=== PATIENT | male | born 1960 | race Caucasian/White ===

== ENCOUNTER 2017-12-02 05:15 | Observation (INO) | payer OTHER ==
[~2017-12-02] VITALS: Ht 180.3 cm; Wt 82.7 kg
[2017-12-02] MEDS ORDERED: TAMS.4ER PO (05:51)
[2017-12-02] MEDS ORDERED: METO25ER PO (05:52)
[2017-12-02] MEDS ORDERED: ALLO100 PO (05:52)
[2017-12-02] MEDS ORDERED: Prilosec Otc20 MG PO (05:53)
[2017-12-02 05:55] LABS: BASOPHILS ABSOLUTE AUTO 0.02 K/mm3 (0.00-0.23); BASOPHILS PERCENT AUTO 0 % (0-2); EOSINOPHILS ABSOLUTE AUTO 0.01 K/mm3 (0.00-0.68); EOSINOPHILS PERCENT AUTO 0 % (0-6); Hemoglobin 13.3 g/dL (13.5-17.5); IMMATURE GRAN ABSOLUTE AUTO 0.04 K/mm3 (0.00-0.10); IMMATURE GRAN PERCENT AUTO 1 % (0-1); LYMPHOCYTES ABSOLUTE AUTO 0.83 K/mm3 (0.84-5.20); LYMPHOCYTES PERCENT AUTO 10 % (21-46); MONOCYTES ABSOLUTE AUTO 1.18 K/mm3 (0.16-1.47); MONOCYTES PERCENT AUTO 15 % (4-13); Mean Corpuscular HGB 33.9 pg (26.0-34.0); Mean Corpuscular HGB Conc 35.9 g/dL (31.5-36.5); Mean Corpuscular Volume 94 fL (80-100); NEUTROPHILS ABSOLUTE AUTO 5.97 K/mm3 (1.96-9.15); NEUTROPHILS PERCENT AUTO 74 % (41-73); Platelet Count 136 K/mm3 (150-400); RDW Coefficient Variation 11.9 % (11.7-14.2); RDW Standard Deviation 41.3 fL (35.1-46.3); Red Blood Cell Count 3.92 M/mm3 (4.30-5.90); White Blood Cell Count 8.05 K/mm3 (4.00-11.30)
[2017-12-02 06:19] LABS: Alanine Aminotransfer (ALT/SGP 163 U/L (12-78); Albumin, Blood 3.4 g/dL (3.4-5.0); Albumin/Globulin Ratio 0.8 (0.8-1.8); Alk Phos 143 U/L (50-136); Anion Gap 10 mmol/L (6-16); Aspartate Aminotrans (AST/SGOT 117 U/L (12-37); Bilirubin, Total 1.8 mg/dL (0.1-1.0); Blood Urea Nitrogen 11 mg/dL (8-24); Bun/Creatinine Ratio 16.3 (12.0-20.0); CO2, Blood 25 mmol/L (21-32); Calcium, Blood 8.4 mg/dL (8.5-10.1); Chloride, Blood 104 mmol/L (98-108); Creatinine, Blood 0.67 mg/dL (0.60-1.20); Globulin, Blood 4.1 g/dL (2.2-4.0); Glomerular Filtration Rate >60 (60-); Glucose, Blood 105 mg/dL (70-99); Potassium, Blood 3.7 mmol/L (3.5-5.5); Sodium, Blood 139 mmol/L (136-145); Total Protein, Blood 7.5 g/dL (6.4-8.2)
[2017-12-02 06:57] LABS: Source, Urine Clean Catch
[2017-12-02 07:06] LABS: Blood, Urine 2+ (Neg); Glucose Qualitative, Urine Neg (Neg); Ketones, Urine 4+ (Neg); Leukocyte Esterase, Urine 1+ (Neg); Nitrite, Urine Pos (Neg); Protein, Urine 2+ (Neg); Urobilinogen, Urine 3+ (Normal)
[2017-12-02 07:31] LABS: Bilirubin, Urine 1+ (Neg)
[2017-12-02 07:32] LABS: Appearance, Urine Hazy (Clear); Color, Urine Amber (P-Yellow)
[2017-12-02 07:35] LABS: Bacteria Rare /hpf; Mucus Mod (0-Heavy); Squamous Epithelial Cells Rare /hpf (Few)
[2017-12-03] MEDS ORDERED: HYDR1TAB94 PO (12:33)
[2017-12-03] MEDS ORDERED: Augmentin 875-1 EACH PO (12:33)
== END 2017-12-03 13:14 | disposition home or self-care (01) ==
LOC: ER 05:15 → SURS 05:17 → ER 10:31 → SURS 10:31
PROVIDERS: Emergency Medicine; Surgery
PROC: 0DTJ4ZZ Resection of Appendix, Percutaneous Endoscopic Approach (ICD-10-PCS; principal; 2017-12-02 15:00)
DX: K35.2 Acute appendicitis with generalized peritonitis (principal); M10.9 Gout, unspecified; K76.0 Fatty (change of) liver, not elsewhere classified; R79.89 Other specified abnormal findings of blood chemistry; Z72.89 Other problems related to lifestyle; Z79.899 Other long term (current) drug therapy
CPT/HCPCS: 36415; 76705; 76857; 80053; 81001; 83690; 85025; 87077; 87086; 87186; 88304; 93005; 93010; 96361; 96365; 96375; 96376; 99285-25; G0378; J0295; J1100; J1885; J2250; J2405; J2710; J3010; J7030; J7120

== ENCOUNTER 2018-07-11 09:17 | Day surgery (SDC) | payer OTHER ==
[~2018-07-11] VITALS: Ht 180.3 cm; Wt 85.8 kg
[~2018-07-11 09:17] MED LIST: ALLO100 PO; Augmentin 875-1 EACH PO; HYDR1TAB94 PO; METO100ER PO; METO25ER PO; Prilosec Otc20 MG PO; TAMS.4ER PO
[2018-07-11] MEDS ORDERED: IBUP600 (09:40)
--- NOTE | 2018-07-11 11:03 | NUR ---
07/11/18 1103 Shelly Yates 10MG INDIGOCARMINE INJECTED INTO THE CECAL POLYP PER DR QUEEN.
== END 2018-07-11 12:17 | disposition home or self-care (01) ==
LOC: ORSCSDS 09:17
PROVIDERS: Internal Medicine Gastroenterology
PROC: 0DBH8ZX Excision of Cecum, Via Natural or Artificial Opening Endoscopic, Diagnostic (ICD-10-PCS; principal; 2018-07-11 10:30)
PROC: 3E0H8GC Introduction of Other Therapeutic Substance into Lower GI, Via Natural or Artificial Opening Endoscopic (ICD-10-PCS; principal; 2018-07-11 10:30)
PROC: 0DBK8ZX Excision of Ascending Colon, Via Natural or Artificial Opening Endoscopic, Diagnostic (ICD-10-PCS; principal; 2018-07-11 10:30)
DX: Z12.11 Encounter for screening for malignant neoplasm of colon (principal); K57.90 Diverticulosis of intestine, part unspecified, without perforation or abscess without bleeding; K64.8 Other hemorrhoids; D12.1 Benign neoplasm of appendix; D12.2 Benign neoplasm of ascending colon; I10 Essential (primary) hypertension; I48.0 Paroxysmal atrial fibrillation; K21.9 Gastro-esophageal reflux disease without esophagitis; F17.290 Nicotine dependence, other tobacco product, uncomplicated; Z79.899 Other long term (current) drug therapy; Z86.010 Personal history of colon polyps; Z83.71 Family history of colonic polyps; Z80.0 Family history of malignant neoplasm of digestive organs
CPT/HCPCS: 88305; J2250; J7120

== ENCOUNTER 2018-12-10 08:31 | Emergency (ER) | payer OTHER ==
[~2018-12-10 08:31] MED LIST changes: +IBUP600
== END 2018-12-10 20:24 | disposition left against medical advice (07) ==
LOC: ER 08:31
DX: Z53.21 Procedure and treatment not carried out due to patient leaving prior to being seen by health care provider (principal)

== ENCOUNTER 2020-04-29 10:00 | Day surgery (SDC) | payer OTHER ==
[~2020-04-29] VITALS: Ht 180.3 cm; Wt 82.6 kg
== END 2020-04-29 11:45 | disposition home or self-care (01) ==
LOC: ORSCSDS 10:00
DX: Z86.010 Personal history of colon polyps (principal); D12.2 Benign neoplasm of ascending colon; D12.4 Benign neoplasm of descending colon; K57.30 Diverticulosis of large intestine without perforation or abscess without bleeding; K64.8 Other hemorrhoids; Z80.0 Family history of malignant neoplasm of digestive organs
CPT/HCPCS: 88305; J2250; J2704; J7120

== ENCOUNTER 2023-12-11 08:56 | Day surgery (SDC) | payer OTHER ==
[~2023-12-11] VITALS: Ht 180.3 cm; Wt 88.1 kg
[~2023-12-11 08:56] MED LIST changes: +Lactated Ringer's 1,000 ML IV ONE; +propofoL 50 ML IV ONE
[2023-12-11] MEDS ORDERED: Lactated Ringer's 1,000 ML IV ONE (09:32)
[2023-12-11] MEDS ORDERED: propofoL 50 ML IV ONE (10:24)
[2023-12-11] MEDS ORDERED: NS 500 ML IV ONE (10:47)
[2023-12-11 11:34] VITALS: BP 126/78
== END 2023-12-11 11:15 | disposition home or self-care (01) ==
LOC: ORSCSDS 08:56
PROVIDERS: Internal Medicine Gastroenterology
PROC: 0DBN8ZX Excision of Sigmoid Colon, Via Natural or Artificial Opening Endoscopic, Diagnostic (ICD-10-PCS; principal; 2023-12-11 10:00)
PROC: 0DBL8ZX Excision of Transverse Colon, Via Natural or Artificial Opening Endoscopic, Diagnostic (ICD-10-PCS; principal; 2023-12-11 10:00)
DX: Z12.11 Encounter for screening for malignant neoplasm of colon (principal); D12.3 Benign neoplasm of transverse colon; K63.5 Polyp of colon; D37.4 Neoplasm of uncertain behavior of colon; K57.30 Diverticulosis of large intestine without perforation or abscess without bleeding; K64.4 Residual hemorrhoidal skin tags; Z86.010 Personal history of colon polyps; Z80.0 Family history of malignant neoplasm of digestive organs; Z83.719 Family history of colon polyps, unspecified; I48.91 Unspecified atrial fibrillation; K21.9 Gastro-esophageal reflux disease without esophagitis
CPT/HCPCS: 88305; J2704; J7120